=== PATIENT | male | born 1970 | race Caucasian/White ===

== ENCOUNTER → 2023-11-15 07:33 | Outpatient (REF) | payer BC, SELFPAY ==
[2023-11-15 08:53] LABS: Blood Urea Nitrogen 31 mg/dl (9-20); Calcium 9.4 mg/dl (8.4-10.2); Carbon Dioxide 26 mmol/L (22-30); Chloride 108 mmol/L (98-107); Glucose 165 mg/dl (70-99); Sodium 142 mmol/L (135-145); eGFR 28.95
[2023-11-15 09:02] LABS: NT-proBNP 471 pg/ml
== END ==
LOC: REG 07:33
PROVIDERS: ATTENDING PHYSICIAN Specialist; FAMILY PHYSICIAN Nurse Practitioner Family
DX: R60.0 Localized edema (principal); N18.4 Chronic kidney disease, stage 4 (severe)
CPT/HCPCS: 36415; 80048; 83880

== ENCOUNTER → 2025-04-09 09:08 | Outpatient (REF) | payer BC, SELFPAY | LOC: RCS 09:08 | PROVIDERS: ATTENDING PHYSICIAN Nurse Practitioner | DX: I25.10 Atherosclerotic heart disease of native coronary artery without angina pectoris (principal) | CPT/HCPCS: 93306; Q9950 ==